=== PATIENT | female | born 2000 | race Caucasian/White ===

== ENCOUNTER 2024-05-04 00:09 | Emergency (ER) | payer OTHER ==
[~2024-05-04] VITALS: Ht 157.5 cm; Wt 74.0 kg
[2024-05-04 00:40] VITALS: TEMP 98.2; O2SAT 100
[2024-05-04 02:53] VITALS: BP 146/82; PULSE 107; RESP 16; O2SAT 100
== END 2024-05-04 02:58 | disposition home or self-care (01) ==
LOC: ER 00:09
DX: R00.2 Palpitations (principal)
CPT/HCPCS: 71045; 93005; 99283